=== PATIENT | female | born 1980 | race American Indian/Alaskan Native ===

== ENCOUNTER 2019-01-27 12:23 | Emergency (ER) | payer OTHER ==
[2019-01-27 12:30] VITALS: BP 142/84
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
== END 2019-01-27 14:28 | disposition home or self-care (01) ==
LOC: ED 12:23
DX: M54.5 Low back pain (principal); R51 Headache; Z79.899 Other long term (current) drug therapy; V49.59XA Passenger injured in collision with other motor vehicles in traffic accident, initial encounter; Y93.89 Activity, other specified; Y92.488 Other paved roadways as the place of occurrence of the external cause; Y99.8 Other external cause status
CPT/HCPCS: 72100

== ENCOUNTER 2021-05-19 18:03 | Emergency (ER) | payer OTHER | END 2021-05-19 18:06 | disposition left against medical advice (07) | LOC: ED 18:03 | DX: Z53.21 Procedure and treatment not carried out due to patient leaving prior to being seen by health care provider (principal) ==